=== PATIENT | male | born 1995 | race Two or more races ===

== ENCOUNTER 2025-06-14 11:13 | Emergency (ER) | payer OTHER ==
[~2025-06-14] VITALS: Ht 177.8 cm; Wt 81.6 kg
[2025-06-14] MEDS ORDERED: DESCOVY 120-151 EACH PO (11:20)
== END 2025-06-14 13:31 | disposition home or self-care (01) ==
LOC: ER 11:13
DX: S91.211A Laceration without foreign body of right great toe with damage to nail, initial encounter (principal); X58.XXXA Exposure to other specified factors, initial encounter; Y93.89 Activity, other specified; Y92.89 Other specified places as the place of occurrence of the external cause; Y99.9 Unspecified external cause status